=== PATIENT | male | born 1950 | race Caucasian/White ===

== ENCOUNTER → 2024-01-03 07:47 | Outpatient (REF) | payer MEDICARE, SELFPAY | LOC: HWRAD 07:47 | PROVIDERS: ATTENDING PHYSICIAN Nurse Practitioner Family; FAMILY PHYSICIAN Internal Medicine Geriatric Medicine | DX: M62.08 Separation of muscle (nontraumatic), other site (principal) | CPT/HCPCS: 76705 ==

== ENCOUNTER → 2024-09-03 13:02 | Outpatient (REF) | payer MEDICARE, SELFPAY | LOC: HWRAD 13:02 | PROVIDERS: ATTENDING PHYSICIAN Internal Medicine Geriatric Medicine | DX: Z00.00 Encounter for general adult medical examination without abnormal findings (principal); E78.2 Mixed hyperlipidemia; E03.8 Other specified hypothyroidism; G47.33 Obstructive sleep apnea (adult) (pediatric); R73.01 Impaired fasting glucose; R00.2 Palpitations; Z13.31 Encounter for screening for depression; R05.3 Chronic cough | CPT/HCPCS: 71046 ==

== ENCOUNTER → 2024-10-22 09:23 | Outpatient (REF) | payer MEDICARE, SELFPAY | LOC: HWRCS 09:23 | PROVIDERS: ATTENDING PHYSICIAN Internal Medicine Cardiovascular Disease; FAMILY PHYSICIAN Internal Medicine Geriatric Medicine | DX: I48.3 Typical atrial flutter (principal); I35.1 Nonrheumatic aortic (valve) insufficiency | CPT/HCPCS: 93306 ==

== ENCOUNTER → 2025-07-07 15:29 | Outpatient (REF) | payer MEDICARE, SELFPAY | LOC: RCS 15:29 | PROVIDERS: ATTENDING PHYSICIAN Nurse Practitioner Family; FAMILY PHYSICIAN Internal Medicine Geriatric Medicine | DX: F41.9 Anxiety disorder, unspecified (principal); R00.2 Palpitations; I10 Essential (primary) hypertension | CPT/HCPCS: 93005 ==

== ENCOUNTER → 2025-07-08 08:32 | Outpatient (REF) | payer MEDICARE, SELFPAY | LOC: RCS 08:32 | PROVIDERS: ATTENDING PHYSICIAN Nurse Practitioner Family; FAMILY PHYSICIAN Internal Medicine Geriatric Medicine | DX: F41.9 Anxiety disorder, unspecified (principal); R00.2 Palpitations; I10 Essential (primary) hypertension | CPT/HCPCS: 93225; 93226 ==

== ENCOUNTER → 2025-08-26 13:39 | Outpatient (REF) | payer MEDICARE, SELFPAY | LOC: RCS 13:39 | PROVIDERS: ATTENDING PHYSICIAN Nurse Practitioner Family; FAMILY PHYSICIAN Internal Medicine Geriatric Medicine | DX: R93.1 Abnormal findings on diagnostic imaging of heart and coronary circulation (principal); I10 Essential (primary) hypertension; E78.2 Mixed hyperlipidemia; F41.9 Anxiety disorder, unspecified | CPT/HCPCS: 93017; 93350 ==